=== PATIENT | female | born 1970 ===

== ENCOUNTER 2016-11-08 12:04 | Emergency (ER) | payer OTHER ==
[2016-11-08 12:04] VITALS: BMI 19.1
[2016-11-08 12:17] VITALS: RESP 18; O2SAT 98
[2016-11-08] MEDS ORDERED: Oxycodone/Acetaminophen 5/325 mg Tab PO STA (13:08)
[2016-11-08] MEDS ORDERED: Tmp-Smz 800 mg-160 mg DS Tab PO STA (13:08)
--- NOTE | 2016-11-08 13:47 | ED PDOC ---
Arrival/HPI - General Chief Complaint: ENT Problem Time Seen by Provider: 11/08/16 13:07 Historian: Patient - History of Present Illness Narrative History of Present Illness (Text): 11/08/16 46-year-old female presents today with a four-day history of right-sided ear pain and discharge. Patient denies decreased hearing. She denies headaches dizziness or weakness. Patient states she has pain when she touches the ear. She denies any pain to the posterior aspect of the ear. She denies any fevers or chills. Patient states she's been having some relief of the pain when she takes extra strength Tylenol. Patient also complaining of a 2 day history of an abscess to the left side of the face. Patient denies neck or back pain. Denies shortness of breath. Patient denies history of diabetes. Denies any other complaints. Past Medical History - Provider Review Nursing Documentation Reviewed: Yes - Travel History Have you recently traveled outside [place] w/in the past 3 mons?: No - Infectious Disease Hx of Infectious Diseases: None - Tetanus Immunization Tetanus Immunization: Unknown - Cardiac Hx Cardiac Disorders: Yes - Pulmonary Hx Respiratory Disorders: Yes (PNEUMOTHORAX `09-05-16,SMOKES PPD FOR 24 YRS, SMOKES MARIJUANA .) Hx Bronchitis: Yes Other/Comment: Collapsed lung left side - Neurological Hx Neurological Disorder: No - HEENT Hx HEENT Disorder: No - Renal Hx Renal Disorder: No - Endocrine/Metabolic Hx Endocrine Disorders: No - Hematological/Oncological Hx Blood Disorders: No - Integumentary Hx Dermatological Disorder: No - Musculoskeletal/Rheumatological Hx Musculoskeletal Disorders: No Hx Falls: No - Gastrointestinal Hx Gastrointestinal Disorders: No - Genitourinary/Gynecological Hx Genitourinary Disorders: Yes (TUBAL LIGATION) - Psychiatric Hx Psychophysiologic Disorder: No Hx Substance Use: Yes (MARIJUANA USE .SMOKED 1 WEEK AGO) - Surgical History Other/Comment: Lung surgery - Anesthesia Hx Anesthesia Reactions: No Family/Social History - Physician Review Nursing Documentation Reviewed: Yes Family/Social History: Unknown Family HX Smoking Status: Current Some Days Smoker Hx Alcohol Use: Yes (OCCASIONALLY) Hx Substance Use: Yes (MARIJUANA USE .SMOKED 1 WEEK AGO) Allergies/Home Meds Allergies/Adverse Reactions: Allergies No Known Allergies Allergy (Verified 09/05/16 19:40) Review of Systems - Review of Systems Constitutional: absent: Fatigue, Fevers Eyes: absent: Photophobia, Eye Pain ENT: Other (Right ear pain). absent: Sore Throat Respiratory: absent: SOB, Cough Cardiovascular: absent: Chest Pain, Palpitations Gastrointestinal: absent: Abdominal Pain, Vomiting Musculoskeletal: absent: Arthralgias, Back Pain, Neck Pain Skin: Abscess (Abscess to the left side of the face) Neurological: absent: Headache, Dizziness Physical Exam Vital Signs Reviewed: Yes Vital Signs Temp Pulse Resp BP Pulse Ox 11/08/16 13:57 97.6 F 74 18 116/80 98 11/08/16 12:09 98.3 F 91 H 18 125/89 98 Temperature: Afebrile Blood Pressure: Normal Pulse: Regular Respiratory Rate: Normal Appearance: Positive for: Well-Appearing, Non-Toxic, Comfortable Pain Distress: None Mental Status: Positive for: Alert and Oriented X 3 - Systems Exam Head: Present: Other (Patient with a 1 cm round indurated area of erythema noted to the left cheek just adjacent to the ear. No fluctuance. Minimal tenderness. No surrounding erythema.) Ears: Present: Erythema, Other (No mastoid tenderness or erythema). No: Normal , NORMAL TM, Normal Canal (Right ear: There is a positive pinna pull and tracheal tug. There is edema noted to the external auditory canal with a white/ yellow discharge. The TM is not visualized.), TM Bulging Mouth: Present: Moist Mucous Membranes Pharnyx: Present: Normal Neck: Present: Normal Range of Motion, Trachea Midline. No: Lymphadenopathy Respiratory/Chest: Present: Clear to Auscultation Cardiovascular: Present: Regular Rate and Rhythm, Normal S1, S2. No: Murmurs Neurological: Present: GCS=15, Speech Normal Skin: Present: Warm, Dry Psychiatric: Present: Alert, Oriented x 3 Medical Decision Making ED Course and Treatment: 11/08/16 46-year-old female nontoxic well-appearing no distress stable vital signs afebrile complaining of right ear pain and discharge 4 days and an abscess to the left side of the face 2 days Abscess is indurated. There is no fluctuance. We'll place the patient on Bactrim and advise warm compresses Patient with significant otitis externa without mastoid tenderness or erythema will place the patient on amoxicillin and add Floxin Otic. I stressed the importance of follow-up with the ENT specialist within the next 2 days. Advised immediately return if symptoms worsen persist or if new concerning symptoms develop such as high fevers, increasing pain and increasing redness increasing swelling or purulent discharge. I've advised applying warm compresses to the affected area twice daily. I've advised follow-up with the surgeon. Patient verbalizes understanding of discharge instructions and need for immediate followup. impression; abscess, otitis media, otitis externa Motrin every 6 hours as needed for pain/fever reduction Increase fluids Amoxicillin 3 times daily 10 days Bactrim 1 tablet twice daily 7 days Floxin otic; 10 drops to affected ear once daily x 7 days Follow up primary care physician within the next 2 days follow-up with ENT specialist within the next 2 days warm compresses to the abscess twice daily Return if symptoms worsen persist or if the symptoms develop: high fevers, increasing pain, increasing redness, increasing swelling, purulent discharge - Medication Orders Current Medication Orders: Discontinued Medications Amoxicillin (Amoxil 500 Mg Cap) 500 mg PO STAT STA PRN Reason: Protocol Stop: 11/08/16 13:09 Last Admin: 11/08/16 13:17 Dose: 500 MG Ketorolac Tromethamine (Toradol) 60 mg IM STAT STA Stop: 11/08/16 13:09 Last Admin: 11/08/16 13:17 Dose: 60 MG IM Administration Charges Document 11/08/16 13:17 [facility] [place] [place] (Rec: 11/08/16 13:17 [facility] [place] [place] [id number]) Charges for Administration # of IM Administrations 1 Oxycodone/Acetaminophen (Percocet 5/325 Mg Tab) 1 tab PO STAT STA Stop: 11/08/16 13:09 Last Admin: 11/08/16 13:17 Dose: 1 TAB Trimethoprim/Sulfamethoxazole (Bactrim Ds Tab) 1 tab PO STAT STA PRN Reason: Protocol Stop: 11/08/16 13:09 Last Admin: 11/08/16 13:17 Dose: 1 TAB Disposition/Present on Arrival - Present on Arrival Any Indicators Present on Arrival: No History of DVT/PE: No History of Uncontrolled Diabetes: No Urinary Catheter: No History of Decub. Ulcer: No History Surgical Site Infection Following: None - Disposition Have Diagnosis and Disposition been Completed?: Yes Diagnosis: Otitis media, Otitis externa, Abscess Disposition: HOME/ ROUTINE Disposition Time: 13:30 Patient Plan: Discharge Condition: GOOD Discharge Instructions (ExitCare): Otitis Media (ED), Otitis Externa (ED), Abscess (ED) Additional Instructions: Motrin every 6 hours as needed for pain/fever reduction Increase fluids Amoxicillin 3 times daily 10 days Bactrim 1 tablet twice daily 7 days Floxin otic; 10 drops to affected ear once daily x 7 days Follow up primary care physician within the next 2 days follow-up with ENT specialist within the next 2 days warm compresses to the abscess twice daily Return if symptoms worsen persist or if the symptoms develop: high fevers, increasing pain, increasing redness, increasing swelling, purulent discharge Prescriptions: Amoxicillin 500 mg PO TID #30 tab Sulfamethoxazole/Trimethoprim [Bactrim DS 800 mg-160 mg] 1 tab PO BID #14 tab Ofloxacin Otic 0.3% [Floxin 0.3% Otic Soln] 10 drop AD DAILY #1 bottle Ibuprofen [Motrin] 600 mg PO Q6H PRN #20 tab PRN Reason: pain/fever reduction Referrals: Stephanie Mcknight APN, APN [Primary Care Provider] - Follow up with primary Tanja Castañeda MD [Staff Provider] - Follow up with primary Kilo Todd DO [Staff Provider] - Follow up with primary
[2016-11-08 13:57] VITALS: BP 116/80; PULSE 74; TEMP 97.6
== END 2016-11-08 14:01 | disposition home or self-care (01) ==
LOC: ED 12:04
DX: H66.91 Otitis media, unspecified, right ear (principal); H60.91 Unspecified otitis externa, right ear; L02.01 Cutaneous abscess of face; F17.210 Nicotine dependence, cigarettes, uncomplicated
CPT/HCPCS: 96372; 99282; J1885

== ENCOUNTER 2017-06-06 15:56 | Emergency (ER) | payer OTHER ==
[2017-06-06 15:56] VITALS: BMI 19.1
[2017-06-06 16:25] VITALS: TEMP 98.4
[2017-06-06] MEDS ORDERED: Sodium Chloride 0.9% 1,000 ML IV STA (16:43)
[2017-06-06 17:03] LABS: URINE BILIRUBIN NEGATIVE (NEGATIVE); URINE BLOOD SMALL (NEGATIVE); URINE GLUCOSE (UA) NEGATIVE (NEGATIVE); URINE KETONE NEGATIVE (NEGATIVE); URINE LEUKOCYTE ESTERASE NEGATIVE Leu/uL (NEGATIVE); URINE PROTEIN NEGATIVE mg/dL (<30 mg/dL)
[2017-06-06 17:12] LABS: URINE APPEARANCE CLEAR (CLEAR); URINE COLOR YELLOW (YELLOW)
[2017-06-06 17:23] LABS: URINE BACTERIA MOD (NEG)
[2017-06-06 17:41] LABS: BASO # 0.05 K/mm3 (0.0-2.0); BASO % 0.8 % (0.0-3.0); EOS # 0.1 (0.0-0.7); EOS % 1.1 % (1.5-5.0); GRAN # 3.99 (1.4-6.5); GRAN % 63.7 % (50.0-68.0); LYMPH # 1.7 (1.2-3.4); LYMPH % 27.2 % (22.0-35.0); MEAN CELL VOLUME 90.3 fl (80.0-105.0); MEAN CORPUSCULAR HEMOGLOBIN 31.1 pg (25.0-35.0); MEAN CORPUSCULAR HGB CONC 34.4 g/dl (31.0-37.0); MONO # 0.5 (0.1-0.6); MONO % 7.2 % (1.0-6.0); RED CELL DISTRIBUTION WIDTH 12.4 % (11.5-14.5); WHITE BLOOD COUNT 6.3 10^3/ul (4.5-11.0)
--- NOTE | 2017-06-06 17:51 | ED PDOC ---
Arrival/HPI - General Historian: Patient - History of Present Illness Time/Duration: > week (3 weeks) Symptom Onset: Gradual Symptom Course: Intermittent Quality: Cramping Severity Level: 2 <Pilar Santoyo - Last Filed: 06/06/17 20:56> <Reji Bach - Last Filed: 06/06/17 21:55> - General Chief Complaint: GI Problem Time Seen by Provider: 06/06/17 16:03 - History of Present Illness Narrative History of Present Illness (Text): 06/06/17 17:48 46-year-old female presents today with a 3 week history of intermittent abdominal pain, nausea, vomiting, diarrhea. Patient states she was seen by her primary care physician 2 weeks ago and had lab tests taken and was never advised of the results. Patient states she's had multiple episodes of diarrhea today. She is complaining of lower abdominal pain which she describes as a cramping sensation. Denies chest pain or shortness of breath. She denies dizziness or weakness. Patient denies sick contacts at home. Patient denies urinary symptoms. Denies fevers or chills. No other complaints. Patient denies any recent travel. (Pilar Santoyo) Past Medical History - Provider Review Nursing Documentation Reviewed: Yes - Travel History Have you recently traveled outside [place] w/in the past 3 mons?: No - Infectious Disease Hx of Infectious Diseases: None - Tetanus Immunization Tetanus Immunization: Unknown - Cardiac Hx Cardiac Disorders: Yes - Pulmonary Hx Respiratory Disorders: Yes (PNEUMOTHORAX `09-05-16,SMOKES PPD FOR 24 YRS, SMOKES MARIJUANA .) Hx Bronchitis: Yes Other/Comment: Collapsed lung left side - Neurological Hx Neurological Disorder: No - HEENT Hx HEENT Disorder: No - Renal Hx Renal Disorder: No - Endocrine/Metabolic Hx Endocrine Disorders: No - Hematological/Oncological Hx Blood Disorders: Yes Hx Blood Transfusions: Yes - Integumentary Hx Dermatological Disorder: No - Musculoskeletal/Rheumatological Hx Musculoskeletal Disorders: No Hx Falls: No - Gastrointestinal Hx Gastrointestinal Disorders: No - Genitourinary/Gynecological Hx Genitourinary Disorders: Yes (TUBAL LIGATION) - Psychiatric Hx Psychophysiologic Disorder: No Hx Substance Use: Yes (marijuana) - Surgical History Other/Comment: Lung surgery - Anesthesia Hx Anesthesia Reactions: No <Pilar Santoyo - Last Filed: 06/06/17 20:56> Family/Social History - Physician Review Nursing Documentation Reviewed: Yes Family/Social History: Unknown Family HX Smoking Status: Former Smoker Hx Alcohol Use: Yes Frequency of alcohol use: Socially Hx Substance Use: Yes (marijuana) <YarelisPilar T - Last Filed: 06/06/17 20:56> Allergies/Home Meds <YarelisPilar T - Last Filed: 06/06/17 20:56> <Reji Bach - Last Filed: 06/06/17 21:55> Allergies/Adverse Reactions: Allergies No Known Allergies Allergy (Verified 06/06/17 16:20) Home Medications: Home Meds Medication Instructions Recorded Confirmed Ergocalciferol (Vitamin D2) 0 units PO DAILY 06/06/17 06/06/17 [Vitamin D2] Ferrous Sulfate [Feosol] 0 mg PO DAILY 06/06/17 06/06/17 Review of Systems - Review of Systems Constitutional: Fatigue. absent: Fevers Respiratory: absent: SOB, Cough Cardiovascular: absent: Chest Pain, Palpitations Gastrointestinal: Abdominal Pain, Diarrhea, Nausea, Vomiting Genitourinary Female: absent: Dysuria, Frequency, Hematuria Musculoskeletal: absent: Arthralgias, Back Pain, Neck Pain Skin: absent: Rash, Pruritis Neurological: absent: Headache, Dizziness Psychiatric: absent: Anxiety, Depression <RosannamagdalenaPilar T - Last Filed: 06/06/17 20:56> Physical Exam Vital Signs Reviewed: Yes Temperature: Afebrile Blood Pressure: Normal Pulse: Regular Respiratory Rate: Normal Appearance: Positive for: Well-Appearing, Non-Toxic, Comfortable Pain Distress: None Mental Status: Positive for: Alert and Oriented X 3 - Systems Exam Head: Present: Atraumatic Mouth: Present: Moist Mucous Membranes Neck: Present: Normal Range of Motion Respiratory/Chest: Present: Clear to Auscultation, Good Air Exchange. No: Respiratory Distress, Accessory Muscle Use Cardiovascular: Present: Regular Rate and Rhythm, Normal S1, S2. No: Murmurs Abdomen: Present: Tenderness (+ llq and rlq abd tenderness), Normal Bowel Sounds. No: Distention, Peritoneal Signs, Rebound, Guarding Back: Present: Normal Inspection. No: CVA Tenderness, Midline Tenderness, Paraspinal Tenderness Upper Extremity: Present: Normal ROM Lower Extremity: Present: Normal Inspection, NORMAL PULSES, Normal ROM, Erythema , Temperature Abnormalties, Neurovascularly Intact, Capillary Refill < 2 s. No : CALF TENDERNESS, Tenderness, Swelling, Deformity Neurological: Present: GCS=15, Speech Normal Skin: Present: Warm, Dry, Normal Color. No: Rashes Psychiatric: Present: Alert, Oriented x 3 <Pilar Santoyo Priyanka - Last Filed: 06/06/17 20:56> Vital Signs Temp Pulse Resp BP Pulse Ox 06/06/17 20:53 70 17 120/85 99 06/06/17 20:14 65 17 118/82 98 06/06/17 17:49 68 18 116/75 98 06/06/17 16:14 98.4 F 70 16 118/72 98 Medical Decision Making <Ric Santoyophil Mathew - Last Filed: 06/06/17 20:56> <Reji Bach - Last Filed: 06/06/17 21:55> ED Course and Treatment: 06/06/17 17:51 Patient is nontoxic well appearing with stable vital signs presenting with lower abdominal pain, N/v/d x 3 weeks. CBC wnl CMP wnl Lipase wnl Urinalysis small blood cxr; FINDINGS: LUNGS: No focal consolidation. 5 mm left upper lobe nodular density. Please note that chest x-ray has limited sensitivity for the detection of pulmonary masses. PLEURA: No significant pleural effusion identified. No definite pneumothorax . CARDIOVASCULAR: Heart size appears within normal limits. OSSEOUS STRUCTURES: No acute osseous abnormality identified. VISUALIZED UPPER ABDOMEN: Unremarkable. OTHER FINDINGS: None. IMPRESSION: 5 mm left upper lobe nodular density noted between the 4th and 5th posterior ribs ; outpatient CT of the chest may be considered for further evaluation if indicated. No focal consolidation, significant pleural effusion, or definite pneumothorax identified. CAT scan: FINDINGS: Artifacts: Streak artifact degrades image quality. Lower thorax: There are atelectatic changes at the left base. There is pleural thickening and scarring greatest at the left base. Heart size is normal. There is a small hernia ABDOMEN: Liver: unremarkable Gallbladder and bile ducts: unremarkable Pancreas: unremarkable Spleen: unremarkable Adrenals: unremarkable Kidneys and ureters: There is a 12 mm low attenuation right renal lesion not a simple cyst by CT criteria. Kidneys and ureters are otherwise unremarkable. Stomach and bowel: Stomach is almost empty. Rotation is normal. Small bowel is mildly distended with fluid and air. There is no small bowel obstruction. Ileocecal region is unremarkable. Appendix and terminal ileum are unremarkable.Cecum is low in the pelvis. Streak and motion limit evaluation of the colon. The colon collapsed there is scattered diverticulosis Appendix: See stomach and bowel PELVIS: Bladder: Bladder is partially distended. There is mild bladder wall thickening. Reproductive: Uterus and adnexal structures are unremarkable. ABDOMEN and PELVIS: Intraperitoneal space: There is a small amount of free fluid in the pelvis.There is no free air. Bones/joints: There are no acute osseous abnormalities. Soft tissues: unremarkable Vasculature: There are vascular calcifications. Lymph nodes: There is no pathologic adenopathy. IMPRESSION: No acute solid visceral abnormality, 12 mm low attenuation right renal lesion not a simple cyst by CT criteria; mild bladder wall thickening, underdistention versus inflammation; free fluid in the cul-de-sac, physiologic versus recent cyst rupture; no CT findings of appendicitis or diverticulitis Additional findings as described above. Patient reassessment:pt non toxic well appearing; no distress. stable vitals. Discussed all results with patient in depth. discussed finding of nodule on lung on CT and renal lesion. stressed importance of IMMEDIATE f/u with PMD and specialist. advised f/u with PMD for outpatient CT. advised f/u with GI. advised immediate return if symptoms worsen,persist or if new symptoms develop. Patient verbalizes understanding of discharge instructions and need for immediate followup. all aspects of this case were discussed the attending of record. Impression: Abdominal pain, diarrhea, Nausea/vomiting, lung nodule, renal lesion tylenol every 4 hours as needed for pain Increase fluids Pepcid one tablet daily Follow up with primary care physician within the next [address] of chest as well renal lesion on CT. Follow up with the GI doctor within the next 2 days. Follow up with surgeon/IR specialist Follow up with [facility] Return immediately if symptoms worsen persist or if new symptoms develop: High fevers, increasing pain, vomiting, diarrhea or any other concerning symptoms develop (RosannaiaPilar) - Lab Interpretations Lab Results: 06/06/17 17:15 06/06/17 17:15 Lab Results 06/06/17 17:15: WBC 6.3, RBC 4.54, Hgb 14.1, Hct 41.0, MCV 90.3, MCH 31.1, MCHC 34.4, RDW 12.4, Plt Count 281, MPV 9.0, Gran % 63.7, Lymph % (Auto) 27.2, [place] % (Auto) 7.2 H, Eos % (Auto) 1.1 L, Baso % (Auto) 0.8, Gran # 3.99, Lymph # 1.7 , [place]ahan # 0.5, Eos # 0.1, Baso # 0.05 06/06/17 17:15: Sodium 141, Potassium 3.9, Chloride 107, Carbon Dioxide 25, Anion Gap 13, BUN 6 L, Creatinine 0.6 L, Est GFR ( Amer) > 60, Est GFR ( Non-Af Amer) > 60, Random Glucose 97, Calcium 9.2, Total Bilirubin 0.8, AST 30, ALT 55, Alkaline Phosphatase 83, Total Protein 7.6, Albumin 4.6, Globulin 3.0, Albumin/Globulin Ratio 1.5, Lipase 55 06/06/17 16:50: Urine Color Yellow, Urine Appearance Clear, Urine pH 6.0, Ur Specific [place] 1.025, Urine Protein Negative, Urine Glucose (UA) Negative, Urine Ketones Negative, Urine Blood Small H, Urine Nitrate Negative, Urine Bilirubin Negative, Urine Urobilinogen 1.0 H, Ur Leukocyte Esterase Negative, Urine RBC 1 - 3, Urine WBC 2 - 5, Ur Epithelial Cells 3 - 4, Urine Bacteria Mod - RAD Interpretation Radiology Orders: 06/06/17 17:18 ABD & PELVIS IV CONTRAST ONLY [CT] Stat 06/06/17 17:50 CHEST PORTABLE [RAD] Stat - Medication Orders Current Medication Orders: Discontinued Medications Famotidine (Pepcid) 20 mg IVP STAT STA Stop: 06/06/17 16:44 Last Admin: 06/06/17 17:25 Dose: 20 mg IVP Administration Document 06/06/17 17:25 SF (Rec: 06/06/17 17:25 [email or web address] Charges for Administration # of IVP Administrations 1 Sodium Chloride (Sodium Chloride 0.9%) 1,000 mls @ 999 mls/hr IV .Q1H1M STA Stop: 06/06/17 17:43 Last Admin: 06/06/17 17:25 Dose: 999 mls/hr eMAR Start Stop Document 06/06/17 17:25 SF (Rec: 06/06/17 17:25 [email or web address] Intravenous Solution Start Date 06/06/17 Start Time 17:25 End Date 06/06/17 End time 18:26 Total Infusion Time 61 - PA / PHARMACY INTAKE COORDINATOR / Resident Statement / has reviewed & agrees with the documentation as recorded. <Reji Bach - Last Filed: 06/06/17 21:55> Disposition/Present on Arrival - Present on Arrival Any Indicators Present on Arrival: No History of DVT/PE: No History of Uncontrolled Diabetes: No Urinary Catheter: No History of Decub. Ulcer: No History Surgical Site Infection Following: None - Disposition Have Diagnosis and Disposition been Completed?: Yes Disposition Time: 20:44 Patient Plan: Discharge <Pilar Santoyo - Last Filed: 06/06/17 20:56> <MikalaReji - Last Filed: 06/06/17 21:55> - Disposition Diagnosis: Nausea & vomiting, Diarrhea, Abdominal pain, Lung nodule, Renal lesion Disposition: HOME/ ROUTINE Condition: GOOD Discharge Instructions (ExitCare): Acute Nausea and Vomiting (ED), Acute Abdominal Pain (ED), Pulmonary Nodules (ED) Additional Instructions: tylenol every 4 hours as needed for pain Increase fluids Pepcid one tablet daily Follow up with primary care physician within the next [address] of chest as well renal lesion on CT. Follow up with the GI doctor within the next 2 days. Follow up with surgeon/IR specialist Follow up with [facility] Return immediately if symptoms worsen persist or if new symptoms develop: High fevers, increasing pain, vomiting, diarrhea or any other concerning symptoms develop Prescriptions: Famotidine [Pepcid] 20 mg PO DAILY #30 tab Referrals: Kelly PINA,MD Janessa [Medical Doctor] - Follow up with primary Timbo Dunham MD [Staff Provider] - Follow up with primary Gopal Mccray MD [Staff Provider] - Follow up with primary Korey Coe MD [Staff Provider] - Follow up with primary David Harman MD [Staff Provider] - Follow up with primary Forms: [facility] (Paraguayan), WORK NOTE
[2017-06-06 17:53] LABS: ALB/GLOB RATIO 1.5 (1.1-1.8); ALKALINE PHOSPHATASE 83 U/L (38-126); ALT/SGPT 55 U/L (7-56); AST/SGOT 30 U/L (14-36); BILIRUBIN,TOTAL 0.8 mg/dL (0.2-1.3); BLOOD UREA NITROGEN 6 mg/dL (7-21); CALCIUM 9.2 mg/dL (8.4-10.5); CARBON DIOXIDE 25 mmol/L (21-33); CHLORIDE 107 mmol/L (98-107); GFR AFRICAN-AMERICAN > 60; GLUCOSE,RANDOM 97 mg/dL (70-110); LIPASE 55 U/L (23-300); POTASSIUM 3.9 mmol/L (3.6-5.0); SODIUM 141 mmol/L (132-148); TOTAL PROTEIN 7.6 g/dL (5.8-8.3)
--- NOTE | 2017-06-06 18:17 | RAD ---
HISTORY: abd pain COMPARISON: Chest x-ray performed 09/13/16 TECHNIQUE: Chest, one view. FINDINGS: LUNGS: No focal consolidation. 5 mm left upper lobe nodular density. Please note that chest x-ray has limited sensitivity for the detection of pulmonary masses. PLEURA: No significant pleural effusion identified. No definite pneumothorax . CARDIOVASCULAR: Heart size appears within normal limits. OSSEOUS STRUCTURES: No acute osseous abnormality identified. VISUALIZED UPPER ABDOMEN: Unremarkable. OTHER FINDINGS: None. IMPRESSION: 5 mm left upper lobe nodular density noted between the 4th and 5th posterior ribs ; outpatient CT of the chest may be considered for further evaluation if indicated. No focal consolidation, significant pleural effusion, or definite pneumothorax identified.
[2017-06-06] MEDS ORDERED: Iohexol 350 MG/100 ML VIAL ONE (19:16)
[2017-06-06 20:15] VITALS: RESP 17
--- NOTE | 2017-06-06 20:37 | CT ---
EXAM: CT Abdomen and Pelvis With Intravenous Contrast EXAM DATE/TIME: 06/06/2017 5:18 PM CLINICAL HISTORY: 46 years old, female; Pain; Abdominal pain; Localized; Left; Additional info: Abd pain TECHNIQUE: Axial computed tomography images of the abdomen and pelvis with intravenous contrast. All CT scans at this facility use one or more dose reduction techniques, viz.: automated exposure control; ma/kV adjustment per patient size (including targeted exams where dose is matched to indication; i.e. head); or iterative reconstruction technique. Coronal and sagittal reformatted images were created and reviewed. CONTRAST: 89 mL of OMNI 350 administered intravenously. COMPARISON: There are no prior studies for comparison. FINDINGS: Artifacts: Streak artifact degrades image quality. Lower thorax: There are atelectatic changes at the left base. There is pleural thickening and scarring greatest at the left base. Heart size is normal. There is a small hernia ABDOMEN: Liver: unremarkable Gallbladder and bile ducts: unremarkable Pancreas: unremarkable Spleen: unremarkable Adrenals: unremarkable Kidneys and ureters: There is a 12 mm low attenuation right renal lesion not a simple cyst by CT criteria. Kidneys and ureters are otherwise unremarkable. Stomach and bowel: Stomach is almost empty. Rotation is normal. Small bowel is mildly distended with fluid and air. There is no small bowel obstruction. Ileocecal region is unremarkable. Appendix and terminal ileum are unremarkable.Cecum is low in the pelvis. Streak and motion limit evaluation of the colon. The colon collapsed there is scattered diverticulosis Appendix: See stomach and bowel PELVIS: Bladder: Bladder is partially distended. There is mild bladder wall thickening. Reproductive: Uterus and adnexal structures are unremarkable. ABDOMEN and PELVIS: Intraperitoneal space: There is a small amount of free fluid in the pelvis.There is no free air. Bones/joints: There are no acute osseous abnormalities. Soft tissues: unremarkable Vasculature: There are vascular calcifications. Lymph nodes: There is no pathologic adenopathy. IMPRESSION: No acute solid visceral abnormality, 12 mm low attenuation right renal lesion not a simple cyst by CT criteria; mild bladder wall thickening, underdistention versus inflammation; free fluid in the cul-de-sac, physiologic versus recent cyst rupture; no CT findings of appendicitis or diverticulitis Additional findings as described above.
[2017-06-06 20:55] VITALS: BP 120/85; PULSE 70; O2SAT 99
== END 2017-06-06 20:55 | disposition home or self-care (01) ==
LOC: ED 15:56
DX: R10.9 Unspecified abdominal pain (principal); R11.2 Nausea with vomiting, unspecified; R19.7 Diarrhea, unspecified; R91.1 Solitary pulmonary nodule; N28.9 Disorder of kidney and ureter, unspecified
CPT/HCPCS: 71010; 74177; 80053; 81001; 82948; 83690; 85025; 96361; 96374; 99285; J7040; Q9967

== ENCOUNTER 2017-07-26 15:12 | Emergency (ER) | payer OTHER ==
[2017-07-26 15:12] VITALS: BMI 19.1
--- NOTE | 2017-07-26 15:21 | ED PDOC ---
Arrival/HPI - General Time Seen by Provider: 07/26/17 15:20 Historian: Patient - History of Present Illness Narrative History of Present Illness (Text): 07/26/17 15:21 47 y/o female, pmh including hypovitaminosis/pneumothorax/iron deficiency anemia , nkda, c/o epigastric pain with nausea/vomiting x 3 days with no fall or trauma. Aching pain, associated with nausea and vomiting, last bowel movement was yesterda with normal color, been passing gas as well, no dark color stool or bright red blood stool, no weight loss, no dizziness, no urinary symptoms, no palpitation, no night sweat, no other medical or psychological complaints. Past Medical History - Provider Review Nursing Documentation Reviewed: Yes - Infectious Disease Hx of Infectious Diseases: None - Tetanus Immunization Tetanus Immunization: Unknown - Cardiac Hx Cardiac Disorders: Yes - Pulmonary Hx Respiratory Disorders: Yes (PNEUMOTHORAX `09-05-16,SMOKES PPD FOR 24 YRS, SMOKES MARIJUANA .) Hx Bronchitis: Yes Other/Comment: Collapsed lung left side - Neurological Hx Neurological Disorder: No - HEENT Hx HEENT Disorder: No - Renal Hx Renal Disorder: No - Endocrine/Metabolic Hx Endocrine Disorders: No - Hematological/Oncological Hx Blood Disorders: No - Integumentary Hx Dermatological Disorder: No - Musculoskeletal/Rheumatological Hx Musculoskeletal Disorders: No Hx Falls: No - Gastrointestinal Hx Gastrointestinal Disorders: No - Genitourinary/Gynecological Hx Genitourinary Disorders: Yes (TUBAL LIGATION) - Psychiatric Hx Substance Use: Yes (MARIJUANA USE .SMOKED 1 WEEK AGO) - Surgical History Other/Comment: Lung surgery - Anesthesia Hx Anesthesia Reactions: No Family/Social History - Physician Review Nursing Documentation Reviewed: Yes Family/Social History: Unknown Family HX Smoking Status: Current Some Days Smoker Hx Alcohol Use: Yes (OCCASIONALLY) Hx Substance Use: Yes (MARIJUANA USE .SMOKED 1 WEEK AGO) Allergies/Home Meds Allergies/Adverse Reactions: Allergies No Known Allergies Allergy (Verified 07/26/17 15:26) Home Medications: Home Meds Medication Instructions Recorded Confirmed Ergocalciferol (Vitamin D2) 0 units PO DAILY 06/06/17 07/26/17 [Vitamin D2] Ferrous Sulfate [Feosol] 0 mg PO DAILY 06/06/17 07/26/17 Review of Systems - Review of Systems Constitutional: absent: Fatigue, Fevers Eyes: absent: Vision Changes ENT: absent: Hearing Changes Respiratory: absent: SOB, Cough Cardiovascular: absent: Chest Pain Gastrointestinal: Abdominal Pain, Diarrhea, Nausea, Vomiting Musculoskeletal: absent: Arthralgias, Back Pain Skin: absent: Rash, Pruritis Neurological: absent: Headache, Dizziness Physical Exam Vital Signs Temp Pulse Resp BP Pulse Ox 07/26/17 15:12 97.8 F 56 L 18 124/76 100 Pain Distress: Moderate Mental Status: Positive for: Alert and Oriented X 3 - Systems Exam Head: Present: Atraumatic, Normocephalic Pupils: Present: PERRL Extroacular Muscles: Present: EOMI Conjunctiva: Present: Normal Mouth: Present: Moist Mucous Membranes Neck: Present: Normal Range of Motion Respiratory/Chest: Present: Clear to Auscultation, Good Air Exchange. No: Respiratory Distress, Accessory Muscle Use Cardiovascular: Present: Regular Rate and Rhythm, Normal S1, S2. No: Murmurs Abdomen: Present: Tenderness (+epigastric tenderness), Normal Bowel Sounds. No : Distention, Peritoneal Signs, Rebound, Guarding Back: Present: Normal Inspection Upper Extremity: Present: Normal Inspection. No: Cyanosis, Edema Lower Extremity: Present: Normal Inspection. No: Edema Neurological: Present: GCS=15, Speech Normal, Motor Func Grossly Intact, Gait Normal Skin: Present: Warm, Dry, Normal Color. No: Rashes Psychiatric: Present: Alert, Oriented x 3, Normal Insight, Normal Concentration Medical Decision Making ED Course and Treatment: 07/26/17 15:44 -labs/ua -ekg -abdominal sonogram -IVF/pepcid/reglan -Observe and reassess 07/26/17 18:16 -EKG: Sinus Bradycardia @ 59 BPM, no ST elevation or depression, no T wave inversion. -Abdominal sonogram show Unremarkable abdominal sonogram. -Labs are non-significant except potassium 3.4 (potassium chloride 20meq po ordered), negative lipase and negative troponin. -UA show no UTI -Pt. feels well with pain resolved, eating and drinking well. -Discharge home with pepcid, zofran, bed rest, stay hydrated, follow up with your own pmd and GI within 2 days, return to the ER for any new or worsening signs or symptoms. - Lab Interpretations Lab Results: 07/26/17 15:41 07/26/17 16:26 Lab Results 07/26/17 17:15: Urine Color Yellow, Urine Appearance Clear, Urine pH 6.0, Ur Specific [place] >= 1.030, Urine Protein 30 H, Urine Glucose (UA) Negative, Urine Ketones >=80, Urine Blood Negative, Urine Nitrate Negative, Urine Bilirubin Small H, Urine Urobilinogen 0.2, Ur Leukocyte Esterase Negative, Urine RBC 0 - 2, Urine WBC 1 - 3, Ur Epithelial Cells 1 - 3 07/26/17 16:26: Beta HCG, Quant < 2.39 07/26/17 16:26: Sodium 138, Potassium 3.4 L, Chloride 103, Carbon Dioxide 22, Anion Gap 16, BUN 8, Creatinine 0.7, Est GFR ( Amer) > 60, Est GFR (Non- Af Amer) > 60, Random Glucose 97, Calcium 9.5, Magnesium 1.7, Total Bilirubin 1.0, AST 50 H D, ALT 80 H, Alkaline Phosphatase 89, Lactate Dehydrogenase 471, Total Creatine Kinase 168, Troponin I < 0.01, Total Protein 8.1, Albumin 4.8, Globulin 3.4, Albumin/Globulin Ratio 1.4, Lipase 52 07/26/17 15:41: WBC 6.0, RBC 4.41, Hgb 13.7, Hct 39.5, MCV 89.6, MCH 31.1, MCHC 34.7, RDW 12.2, Plt Count 258, MPV 8.9, Gran % 58.1, Lymph % (Auto) 28.0, [place] % (Auto) 11.9 H, Eos % (Auto) 1.5, Baso % (Auto) 0.5, Gran # 3.46, Lymph # 1.7, [place] # 0.7 H, Eos # 0.1, Baso # 0.03 I have reviewed the lab results: Yes Interpretation: No clinic. lab abnormalty - RAD Interpretation Radiology Orders: 07/26/17 15:41 ABDOMEN COMPLETE [US] Stat HISTORY: epigastric pain x 3 days COMPARISON: None. TECHNIQUE: Sonographic evaluation of the abdomen. FINDINGS: LIVER: Measures 12.1 cm. Normal echogenicity of the liver parenchyma. No mass. No intrahepatic bile duct dilatation. GALLBLADDER: Unremarkable. No gallstones. COMMON BILE DUCT: Measures 2 mm. No stones. No dilatation. PANCREAS: Unremarkable as visualized. No mass. No ductal dilatation. RIGHT KIDNEY: Measures 10.8cm. Normal echogenicity. No calculus, mass, or hydronephrosis. LEFT KIDNEY: Measures 11.3cm. Normal echogenicity. No calculus, mass, or hydronephrosis. SPLEEN: Normal in size and contour. No mass. AORTA: No aneurysmal dilatation. IVC: Unremarkable. OTHER FINDINGS: None. IMPRESSION: Unremarkable abdominal sonogram. 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 Interpreted by ED Physician: Yes Type: 12 lead EKG - Medication Orders Current Medication Orders: Discontinued Medications Famotidine (Pepcid) 20 mg IVP STAT STA Stop: 07/26/17 15:42 Last Admin: 07/26/17 15:56 Dose: 20 mg IVP Administration Document 07/26/17 15:56 GMD (Rec: 07/26/17 15:56 GMD [place] [id number]) Charges for Administration # of IVP Administrations 1 Sodium Chloride (Sodium Chloride 0.9%) 1,000 mls @ 999 mls/hr IV .Q1H1M STA Stop: 07/26/17 16:41 Last Admin: 07/26/17 15:56 Dose: 999 mls/hr eMAR Start Stop Document 07/26/17 15:56 GMD (Rec: 07/26/17 15:[address] [email or web address]) Intravenous Solution Start Date 07/26/17 Start Time 15:56 End Date 07/26/17 End time 16:56 Total Infusion Time 60 Metoclopramide HCl (Reglan) 10 mg IVP STAT STA Stop: 07/26/17 15:42 Last Admin: 07/26/17 15:56 Dose: 10 mg IVP Administration Document 07/26/17 15:56 GMD (Rec: 07/26/17 15:[address] [email or web address]) Charges for Administration # of IVP Administrations 1 Potassium Chloride (K-Dur 20 Meq Er Tab) 20 meq PO STAT STA Stop: 07/26/17 17:15 Last Admin: 07/26/17 17:21 Dose: 20 meq - PA / [employer] SUPPORT WORKER / Resident Statement /DO has reviewed & agrees with the documentation as recorded. Disposition/Present on Arrival - Present on Arrival Any Indicators Present on Arrival: No History of DVT/PE: No History of Uncontrolled Diabetes: No Urinary Catheter: No History of Decub. Ulcer: No History Surgical Site Infection Following: None - Disposition Have Diagnosis and Disposition been Completed?: Yes Diagnosis: Gastritis, Epigastric abdominal pain, Hypokalemia Disposition: HOME/ ROUTINE Disposition Time: 17:22 Patient Plan: Discharge Patient Problems: Current Active Problems Problem Status Onset Epigastric abdominal pain Acute Gastritis Acute Hypokalemia Acute Condition: IMPROVED Print Language: PALAUAN Additional Instructions: -Discharge home with pepcid, zofran, bed rest, stay hydrated, follow up with your own pmd and GI within 2 days, return to the ER for any new or worsening signs or symptoms. Prescriptions: Famotidine [Pepcid] 20 mg PO BID PRN #20 tab PRN Reason: Other Ondansetron [Zofran] 4 mg PO Q8H PRN #10 tab PRN Reason: Nausea/Vomiting Referrals: Amanda Triplett DO [Primary Care Provider] - Follow up with primary Artur Salinas MD [Staff Provider] - Follow up with primary Forms: WORK NOTE
[2017-07-26] MEDS ORDERED: Sodium Chloride 0.9% 1,000 ML IV STA (15:41)
[2017-07-26 15:56] VITALS: RESP 18; TEMP 97.8
[2017-07-26 16:01] LABS: BASO # 0.03 K/mm3 (0.0-2.0); BASO % 0.5 % (0.0-3.0); EOS # 0.1 (0.0-0.7); EOS % 1.5 % (1.5-5.0); GRAN # 3.46 (1.4-6.5); GRAN % 58.1 % (50.0-68.0); HEMATOCRIT 39.5 % (36.0-48.0); LYMPH # 1.7 (1.2-3.4); MEAN CELL VOLUME 89.6 fl (80.0-105.0); MEAN CORPUSCULAR HEMOGLOBIN 31.1 pg (25.0-35.0); MEAN CORPUSCULAR HGB CONC 34.7 g/dl (31.0-37.0); MEAN PLATELET VOLUME 8.9 fl (7.0-11.0); MONO # 0.7 (0.1-0.6); MONO % 11.9 % (1.0-6.0); RED CELL DISTRIBUTION WIDTH 12.2 % (11.5-14.5)
[2017-07-26 16:37] LABS: ALB/GLOB RATIO 1.4 (1.1-1.8); ALKALINE PHOSPHATASE 89 U/L (38-126); ALT/SGPT 80 U/L (7-56); AST/SGOT 50 U/L (14-36); BLOOD UREA NITROGEN 8 mg/dL (7-21); CALCIUM 9.5 mg/dL (8.4-10.5); CARBON DIOXIDE 22 mmol/L (21-33); CHLORIDE 103 mmol/L (98-107); GFR AFRICAN-AMERICAN > 60; GLUCOSE,RANDOM 97 mg/dL (70-110); SODIUM 138 mmol/L (132-148); TOTAL PROTEIN 8.1 g/dL (5.8-8.3)
--- NOTE | 2017-07-26 16:59 | US ---
HISTORY: epigastric pain x 3 days COMPARISON: None. TECHNIQUE: Sonographic evaluation of the abdomen. FINDINGS: LIVER: Measures 12.1 cm. Normal echogenicity of the liver parenchyma. No mass. No intrahepatic bile duct dilatation. GALLBLADDER: Unremarkable. No gallstones. COMMON BILE DUCT: Measures 2 mm. No stones. No dilatation. PANCREAS: Unremarkable as visualized. No mass. No ductal dilatation. RIGHT KIDNEY: Measures 10.8cm. Normal echogenicity. No calculus, mass, or hydronephrosis. LEFT KIDNEY: Measures 11.3cm. Normal echogenicity. No calculus, mass, or hydronephrosis. SPLEEN: Normal in size and contour. No mass. AORTA: No aneurysmal dilatation. IVC: Unremarkable. OTHER FINDINGS: None. IMPRESSION: Unremarkable abdominal sonogram.
[2017-07-26 17:09] LABS: POTASSIUM 3.4 mmol/L (3.6-5.0)
[2017-07-26 17:12] LABS: TROPONIN I < 0.01 ng/mL
[2017-07-26] MEDS ORDERED: Potassium Chloride 20 mEq ER Tab PO STA (17:14)
[2017-07-26 17:17] LABS: MAGNESIUM 1.7 mg/dL (1.7-2.2)
[2017-07-26 17:18] LABS: LIPASE 52 U/L (23-300)
[2017-07-26 17:41] LABS: URINE BILIRUBIN SMALL (NEGATIVE); URINE BLOOD NEGATIVE (NEGATIVE); URINE GLUCOSE (UA) NEGATIVE (NEGATIVE); URINE KETONE >=80 mg/dL (NEGATIVE); URINE LEUKOCYTE ESTERASE NEGATIVE Leu/uL (NEGATIVE); URINE PROTEIN 30 mg/dL (<30 mg/dL); URINE UROBILINOGEN 0.2 E.U./dL (<1 E.U./dL)
[2017-07-26 17:46] LABS: URINE APPEARANCE CLEAR (CLEAR); URINE COLOR YELLOW (YELLOW)
[2017-07-26 18:09] LABS: URINE RBC 0 - 2 /hpf (0-2)
[2017-07-26 18:18] VITALS: BP 128/86; PULSE 65; O2SAT 98
--- NOTE | 2017-07-27 09:52 | CARD ---
APPROVED REPORT EKG Measurement Heart [id number] <Conclusion> Sinus bradycardia Otherwise normal No change except slower rate.
== END 2017-07-26 18:28 | disposition home or self-care (01) ==
LOC: ED 15:12
DX: K29.70 Gastritis, unspecified, without bleeding (principal); E87.6 Hypokalemia; R10.13 Epigastric pain
CPT/HCPCS: 76700; 80053; 81001; 82550; 83615; 83690; 83735; 84484; 84702; 85025; 93005; 96361; 96374; 96375; 99285; J2765; J7040